=== PATIENT | female | born 2000 | race African-American/Black ===

== ENCOUNTER 2020-07-19 06:02 | Emergency (ER) | payer OTHER, SELFPAY ==
[2020-07-19 22:09] LABS: SARS-CoV-2 PCR by NAA Not Detected (NotDetected)
== END 2020-07-19 06:53 | disposition home or self-care (01) ==
LOC: NAV ERS 06:02
DX: B34.9 Viral infection, unspecified (principal); J02.9 Acute pharyngitis, unspecified; Z20.822 Contact with and (suspected) exposure to COVID-19
CPT/HCPCS: 87081; 87430; 87635; 99283; U0003; U0005